=== PATIENT | female | born 1990 | race Caucasian/White ===

== ENCOUNTER 2016-11-14 23:31 | Emergency (ER) | payer OTHER ==
[~2016-11-14] VITALS: Ht 170.2 cm; Wt 95.3 kg
[~2016-11-14 23:31] MED LIST: KETOROLAC TROME10 M1 PO; SKELAXIN800 M1 PO; VALIUM2 M1 PO; VICODIN 5-3001 EACH PO
[2016-11-15 00:13] VITALS: BP 142/94
--- NOTE | 2016-11-15 00:18 | ED NECK/BACK PAIN COMPLAINT ---
History of Present Illness General Chief Complaint: Low Back Pain/Injury Stated Complaint: "PER PT I HURT MY BACK" Source: patient, old records Exam Limitations: no limitations Vital Signs & Intake/Output Vital Signs & Intake/Output Vital Signs Date Time Temp Pulse Resp B/P B/P Pulse O2 O2 Flow FiO2 Mean Ox Delivery Rate 11/15 0013 98.1 94 16 142/94 99 Room Air Room Air Allergies Coded Allergies: No Known Allergies (01/19/16) Reconcile Medications Cyclobenzaprine HCl 5 MG TABLET 1 TAB PO TID PRN muscle relaxant Diazepam (Valium) 2 MG TABLET 1 TAB PO BID PRN MUSCLE RELAXOR Diclofenac Sodium 75 MG TABLET.DR 1 TAB PO BID PRN pain/inflammation Escitalopram Oxalate (Lexapro) 5 MG TABLET (Unknown Dose) MENTAL HEALTH ( Reported) Hydrocodone/Acetaminophen (Vicodin 5-300 MG Tablet) 5 MG-300 MG TABLET 1 TAB PO Q6 PRN pain Hydrocodone/Acetaminophen (Vicodin 5-300 MG Tablet) 1 EACH TABLET 1 TAB PO Q6 PRN PAIN Ketorolac Tromethamine 10 MG TABLET 1 TAB PO TID PRN PAIN Metaxalone (Skelaxin) 800 MG TABLET 1 TAB PO TID PRN MUSCLE RELAXOR Triage Note: 26yo FEMALE TO TRIAGE W/CO LOW BACK PAIN SINCE Wed DOING YARDWORK AND THEN TWISTING WHILE GETTING OFF HER COUCH. STATES NO RELIEF AFTER ALEVE OR MOTRIN. Triage Nurses Notes Reviewed? yes : No Patient currently breastfeeds: No HPI: Patient is a 26-year-old female presents complaining of low back pain. Patient was doing yard work on Wednesday when she felt a pull in her low back. Wednesday evening patient was sitting on the couch when she fell onto her coccyx area. Pain is currently worse in the right lumbar paraspinal area. Pain worsens with movement and change of positions. Patient has been taking ibuprofen and Aleve with minimal improvement. Pain does not radiate down the legs. Patient denies abdominal pain, incontinence, numbness, weakness. (TARYN CROWLEY,ROM) Past History Travel History Traveled to [place] past 21 day No Medical History Any Pertinent Medical History? 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 No (ROM ORDAZ) Review of Systems Review of Systems Constitutional: Denies: chills, fever. Eyes: Reports: no symptoms. Ears, Nose, Throat, Mouth: Reports: no symptoms. Respiratory: Denies: short of breath. Cardiovascular: Denies: chest pain. Gastrointestinal/Abdominal: Denies: abdominal pain. Musculoskeletal: Reports: see HPI. Skin: Reports: no symptoms. Neurological/Psychological: Denies: numbness, paresthesia. (ROM ORDAZ) Physical Exam Physical Exam General Appearance: well developed/nourished, alert, awake Head: atraumatic, normal appearance Eyes: Bilateral: normal appearance, PERRL, EOMI. Ears, Nose, Throat, Mouth: hearing grossly normal, moist mucous membrane Neck: normal inspection, supple, full range of motion Respiratory: normal breath sounds, no respiratory distress, lungs clear Cardiovascular: regular rate/rhythm Gastrointestinal: soft, non-tender Back: normal inspection, normal range of motion, right lumbar paraspinal tenderness. No midline bony tenderness. Extremities: non-tender, normal range of motion Straight Leg Raising: Right: Negative. Left: Negative. Neurologic/Psych: no motor/sensory deficits, awake, alert, oriented x 3, normal gait, normal mood/affect Skin: intact, normal color, warm/dry (ROM ORDAZ) Progress Differential Diagnosis: cauda equina syn, herniated disc, myofascial strain, sciatica, spinal cord inj, T/L spine injury Plan of Care: Current Medications Sig/Artemio Start time Last Medication Dose Stop Time Status Admin Acetaminophen/ 1 TAB ONCE ONE 11/15 29 UNVr Hydrocodone Bitart 11/15 30 (Vicodin) Cyclobenzaprine HCl 10 MG ONCE ONE 11/15 29 UNVr (Flexeril 10MG Tab) 11/15 30 Discussed x-rays versus deferring x-rays. I do not believe that obtaining x- rays exchange teller as patient has right lumbar paraspinal tenderness. Also discussed with patient and x-ray would not change the management of the majority of coccyx or low back injuries given her exam. Patient reports that she is able to follow up with her primary doctor on Wednesday. No red flags on exam. Will treat conservatively and have patient follow up closely outpatient (ROM ORDAZ) Departure Departure Time of Disposition: 30 Disposition: HOME OR SELF CARE Condition: Stable Clinical Impression Primary Impression: Low back strain Qualifiers: Encounter type: initial encounter Qualified Code: S39.012A - Strain of muscle, fascia and tendon of lower back, initial encounter Secondary Impressions: Injury of coccyx Qualifiers: Encounter type: initial encounter Qualified Code: S39.92XA - Unspecified injury of lower back, initial encounter Referrals: BJ ENNIS,JUMANA Maynard (PCP/Family) Additional Instructions: Rest, apply heat to the affected area for 20 minutes 4-5 times a day. Follow-up with your photographic editor on Wednesday for further evaluation. Return to emergency department if numbness, weakness, incontinence, or worsening of symptoms. Departure Forms: Customer Survey General Discharge Information Prescriptions: Current Visit Scripts Hydrocodone/Acetaminophen (Vicodin 5-300 MG Tablet) 1 TAB PO Q6 PRN pain #10 TAB Cyclobenzaprine HCl 1 TAB PO TID PRN muscle relaxant #15 TAB Diclofenac Sodium 1 TAB PO BID PRN pain/inflammation #15 TAB (ROM ORDAZ) PA/PRINT LINE INSPECTOR Co-Sign Statement Statement: ED Attending supervision documentation- [] I saw and evaluated the patient. I have also reviewed all the pertinent lab results and diagnostic results. I agree with the findings and the plan of care as documented in the PA's/PRINT LINE INSPECTOR's documentation. [X] I have reviewed the ED Record and agree with the PA's/PRINT LINE INSPECTOR's documentation. [] Additions or exceptions (if any) to the PAs/PRINT LINE INSPECTOR's note and plan are summarized below: [] (KEVAN ENNIS,RICHARD)
[2016-11-15] MEDS ORDERED: VICODIN 5-3001 EACH PO ×2 (00:33→00:34)
[2016-11-15] MEDS ORDERED: DICLOFENAC SODI75 M2 PO ×2 (00:33→00:34)
[2016-11-15] MEDS ORDERED: CYCLOBENZAPRINE5 M2 PO ×2 (00:33→00:34)
[2016-11-15] MEDS ORDERED: LEXAPRO5 M1 (00:43)
== END 2016-11-15 00:41 ==
LOC: ERH 23:31
DX: S39.92XA Unspecified injury of lower back, initial encounter (principal); X50.9XXA Other and unspecified overexertion or strenuous movements or postures, initial encounter; W08.XXXA Fall from other furniture, initial encounter; Y93.H9 Activity, other involving exterior property and land maintenance, building and construction; Y93.89 Activity, other specified; Y92.017 Garden or yard in single-family (private) house as the place of occurrence of the external cause